=== PATIENT | male | born 1945 | race Hispanic/Latino ===

== ENCOUNTER → 2018-08-28 | Outpatient (CLI) | payer OTHER, MEDICARE ==
[~2018-08-28] MED LIST: ALBU8.5H8 IH; BRIM10DR14 OU; CITA-107 PO; LATA2.5D2 OU; LISI-613 PO; LOVA40TA2 PO; MELO-106 PO; NITR0.4T SL; ROPI1TAB11 PO; TAMS0.4C32 PO
== END | disposition home or self-care (01) ==
LOC: RAH 09:46
PROVIDERS: ATTEND Internal Medicine Cardiovascular Disease
DX: I34.0 Nonrheumatic mitral (valve) insufficiency (principal)
CPT/HCPCS: 93306

== ENCOUNTER → 2018-09-13 | Outpatient (CLI) | payer OTHER, MEDICARE ==
[~2018-09-13] VITALS: Ht 160 cm; Wt 83.5 kg
[~2018-09-13] MED LIST changes: +REGADENOSON 0.4 MG/5 ML PF SYG IVP ONE; +REGADENOSON 0.4 MG/5 ML PF SYG IVP SCH
== END | disposition home or self-care (01) ==
LOC: SHCH 08:34
PROVIDERS: ATTEND Internal Medicine Cardiovascular Disease
DX: I42.9 Cardiomyopathy, unspecified (principal)
CPT/HCPCS: 78452; 93017; 96374; A9500 ×2; J2785

== ENCOUNTER → 2019-12-17 | Outpatient (CLI) | payer OTHER, MEDICARE ==
[~2019-12-17] MED LIST changes: -REGADENOSON 0.4 MG/5 ML PF SYG IVP ONE; -REGADENOSON 0.4 MG/5 ML PF SYG IVP SCH; -ROPI1TAB11 PO; +ROPI1TAB13 PO
== END | disposition home or self-care (01) ==
LOC: SHCH 13:26
PROVIDERS: ATTEND Internal Medicine Cardiovascular Disease
DX: I34.0 Nonrheumatic mitral (valve) insufficiency (principal); I25.10 Atherosclerotic heart disease of native coronary artery without angina pectoris; E66.9 Obesity, unspecified; E78.5 Hyperlipidemia, unspecified; I51.7 Cardiomegaly
CPT/HCPCS: 93306; 93356

== ENCOUNTER → 2020-01-30 | Outpatient (CLI) | payer OTHER, MEDICARE ==
[~2020-01-30] MED LIST changes: +IOHEXOL-350 75 ML VIAL IV ONE; +LATA2.5D14 OU; -LATA2.5D2 OU
== END | disposition home or self-care (01) ==
LOC: RAH 08:39
PROVIDERS: ATTEND Internal Medicine Cardiovascular Disease
DX: I51.7 Cardiomegaly (principal); J44.9 Chronic obstructive pulmonary disease, unspecified; I45.10 Unspecified right bundle-branch block; J98.11 Atelectasis; M47.814 Spondylosis without myelopathy or radiculopathy, thoracic region
CPT/HCPCS: 71275; Q9967

== ENCOUNTER 2021-02-11 22:01 | Inpatient (IN) | payer OTHER, MEDICARE ==
[~2021-02-11] VITALS: Ht 157.5 cm; Wt 76.5 kg
[~2021-02-11 22:01] MED LIST changes: -IOHEXOL-350 75 ML VIAL IV ONE; -LISI-613 PO; +LISI20TA24 PO
[2021-02-11] MEDS ORDERED: ALPRAZOLAM 0.25 MG TABLET ONE (22:43)
[2021-02-11] MEDS ORDERED: DILTIAZEM 50MG VIAL IV ONE (22:46)
[2021-02-11] MEDS ORDERED: ALPRAZOLAM 0.5 MG TABLET PO ONE (23:00)
[2021-02-11] MEDS ORDERED: DILTIAZEM 25MG INJ IVP SCH (23:00)
[2021-02-11 23:08] LABS: BASOPHILS % (AUTO) 0.1 % (0.0-5.0); LYMPHOCYTES % (AUTO) 6.3 % (21.0-51.0); MEAN CORPUSCULAR HEMOGLOBIN 23.6 pg (27.0-33.0); MEAN CORPUSCULAR HGB CONC 30.7 g/dL (32.0-36.0); MEAN CORPUSCULAR VOLUME 77.1 fL (79-99); MONOCYTES % (AUTO) 3.2 % (3.0-13.0); NEUTROPHILS % (AUTO) 89.9 % (40.0-77.0); PLATELET COUNT (AUTO) 191 K/uL (130-400); RED BLOOD CELL COUNT(AUTO) 5.71 MIL/uL (4.50-6.20); RED CELL DISTRIBUTION WIDTH 17.3 % (11.0-15.5); WHITE BLOOD COUNT (AUTO) 13.3 K/uL (4.8-10.8)
[2021-02-11 23:16] LABS: CREATININE 1.6 mg/dL (0.5-1.5); POTASSIUM 3.3 mmol/L (3.5-5.1)
[2021-02-11 23:20] LABS: ALBUMIN 3.6 g/dL (3.5-5.0); TOTAL PROTEIN, SERUM 8.1 g/dL (6.0-8.3)
[2021-02-11] MEDS ORDERED: ASPIRIN 325MG TAB PO ONE (23:30)
[2021-02-11] MEDS ORDERED: ONDANSETRON 4MG INJ IVP ONE (23:30)
[2021-02-11] MEDS ORDERED: MORPHINE 4 MG SYG IVP SCH (23:30)
[2021-02-11] MEDS ORDERED: PHARMACY COMMUNICATION MISC SCH (23:45)
[2021-02-11 23:50] LABS: B-TYPE NATRIURETIC PEPTIDE 799 pg/mL (0-100)
[2021-02-12] MEDS ORDERED: DILTIAZEM 125 MG/25 ML INJ 125 MG in 0.9%NACL 100ML 100 ML IV SCH (01:30)
[2021-02-12] MEDS ORDERED: DILTIAZEM 50MG VIAL IV ONE ×2 (02:05→22:01)
[2021-02-12] MEDS ORDERED: 0.9%NACL 100ML 100 ML ONE ×2 (02:07→22:01)
[2021-02-12 04:49] LABS: APPEARANCE,URINE Clear (CLEAR); BILIRUBIN,URINE Negative (NEGATIVE); COLOR,URINE Yellow (YELLOW); GLUCOSE, URINE (UA) Negative (NEGATIVE); KETONES,URINE Negative (NEGATIVE); LEUKOCYTE ESTERASE ,URINE Negative (NEGATIVE); NITRATE,URINE Negative (NEGATIVE); OCCULT BLOOD,URINE Small (NEGATIVE); PH,URINE 5.5 (5.0-8.0); PROTEIN,URINE POS 1+ mg/dL (NEGATIVE)
[2021-02-12 04:55] LABS: BACTERIA,URINE None Seen /HPF (None Seen); RBC,URINE 0-1 /HPF (0-1); WBC,URINE None Seen /HPF (0-1)
[2021-02-12 04:56] LABS: SQUAMOUS EPITHELIAL CELL,UR Rare /HPF (0-2)
[2021-02-12] MEDS ORDERED: IPRATROPIUM/ALBUTEROL SULFATE 3 ML SOLUTION IH PRN (05:00)
[2021-02-12] MEDS ORDERED: ONDANSETRON 4MG INJ IV PRN (05:00)
[2021-02-12] MEDS ORDERED: 0.9% NACL 250ML IVPB SCH (05:00)
[2021-02-12] MEDS ORDERED: FUROSEMIDE 40MG VIAL IV ONE (05:00)
[2021-02-12] MEDS ORDERED: AZITHROMYCIN 500MG VIAL IVPB SCH (05:00)
[2021-02-12] MEDS ORDERED: NITROGLYCERIN 0.4 MG SL TAB SL PRN ×2 (05:00→09:30)
[2021-02-12] MEDS ORDERED: ACETAMINOPHEN 325 MG TAB PO PRN ×2 (05:00)
[2021-02-12 05:12] LABS: BASOPHILS % (AUTO) 0.1 % (0.0-5.0); HEMATOCRIT 43.4 % (42-54); LYMPHOCYTES % (AUTO) 7.7 % (21.0-51.0); MEAN CORPUSCULAR HEMOGLOBIN 23.4 pg (27.0-33.0); MEAN CORPUSCULAR HGB CONC 30.6 g/dL (32.0-36.0); MEAN CORPUSCULAR VOLUME 76.3 fL (79-99); MONOCYTES % (AUTO) 5.2 % (3.0-13.0); NEUTROPHILS % (AUTO) 86.4 % (40.0-77.0); PLATELET COUNT (AUTO) 194 K/uL (130-400); RED BLOOD CELL COUNT(AUTO) 5.69 MIL/uL (4.50-6.20); WHITE BLOOD COUNT (AUTO) 13.6 K/uL (4.8-10.8)
[2021-02-12 05:25] LABS: INR 1.26 (0.85-1.15); PROTHROMBIN TIME 13.4 SEC (9.6-11.6)
[2021-02-12 05:26] LABS: PARTIAL THROMBOPLASTIN TIME 27.3 SEC (26.3-35.5)
[2021-02-12] MEDS: AZITHROMYCIN 500MG+NS 250ML 250 ML IV SCH (05:45)
[2021-02-12] MEDS: CEFTRIAXONE 1G VIAL IV SCH (05:45)
[2021-02-12 06:07] LABS: ALANINE AMINOTRANSFERASE 37 U/L (12-78); ALBUMIN 3.6 g/dL (3.5-5.0); ASPARTATE AMINOTRANSFERASE 121 U/L (10-37); BILIRUBIN,TOTAL 0.9 mg/dL (0.2-1.0); CARBON DIOXIDE 28 mmol/L (21-32); CHLORIDE 104 mmol/L (101-111); CHOLESTEROL 114 mg/dL (<200); CREATININE 1.3 mg/dL (0.5-1.5); GLOMERULAR FILTR. RATE CALC 57 mL/min (>60); GLUCOSE,RANDOM 164 mg/dL (70-105); HDL CHOLESTEROL 48 mg/dL (29-71); LDL DIRECT 55 mg/dL (0-99); MYOGLOBIN 1650 ng/mL (10-92); POTASSIUM 3.4 mmol/L (3.5-5.1); SODIUM SERUM 142 mmol/L (136-145); TOTAL PROTEIN, SERUM 7.8 g/dL (6.0-8.3); TRIGLYCERIDES 68 mg/dL (30-200); UREA NITROGEN, BLOOD 36 mg/dL (7-18)
[2021-02-12 06:14] LABS: CRP QUANTITATIVE < 2.00 mg/L (0.00-9.0)
[2021-02-12 06:16] LABS: CREATINE KINASE, TOTAL 2906 U/L (21-232)
[2021-02-12] MEDS ORDERED: PANT40TA PO (07:59)
[2021-02-12] MEDS ORDERED: LINA145C PO (07:59)
[2021-02-12] MEDS ORDERED: LOVA40TA2 PO (07:59)
[2021-02-12] MEDS ORDERED: APIX5TAB PO (07:59)
[2021-02-12] MEDS ORDERED: CETI10TA57 PO (07:59)
[2021-02-12] MEDS ORDERED: DIGO125T71 PO (08:10)
[2021-02-12] MEDS ORDERED: POTA20LI52 PO (08:10)
[2021-02-12] MEDS ORDERED: METO-391 PO (08:10)
[2021-02-12] MEDS ORDERED: FURO40TA7 PO (08:10)
[2021-02-12] MEDS ORDERED: FLUT1BLS3 IH (08:14)
[2021-02-12] MEDS ORDERED: ALBU8.5H8 IH (08:14)
[2021-02-12] MEDS ORDERED: MIRT-93 PO (08:14)
[2021-02-12] MEDS: METOPROLOL SUCCINATE 50 MG TAB.SR.24H PO SCH (08:58)
[2021-02-12] MEDS: HEPARIN 5,000 UNIT VIAL SQ SCH ×3 (08:58→21:00)
[2021-02-12] MEDS ORDERED: FAMOTIDINE 20MG TAB PO SCH (09:00)
[2021-02-12] MEDS ORDERED: POTASSIUM CHLORIDE 10% ELIXIR 20 MEQ/15 ML UDCUP PO PRN (09:30)
[2021-02-12] MEDS ORDERED: POTASSIUM CHLORIDE 20MEQ/100ML 100 ML IV PRN (09:30)
[2021-02-12] MEDS ORDERED: LIDOCAINE HCL-MPF 1% 2ML VIAL IV PRN (09:30)
[2021-02-12] MEDS: APIXABAN 5 MG TABLET PO SCH ×2 (10:29→21:00)
[2021-02-12] MEDS ORDERED: ACET1TAB25 PO (10:35)
[2021-02-12] MEDS ORDERED: ALBUTEROL INHALER IH PRN (13:00)
[2021-02-12] MEDS: FUROSEMIDE 40 MG TABLET PO SCH (17:56)
[2021-02-12] MEDS: BRIMONIDINE TARTRATE 0.2% 5 ML BOTTLE OU SCH (21:00)
[2021-02-12] MEDS ORDERED: NON-FORMULARY MEDICATION 1 EACH (Lovastatin 40 MG) PO SCH (21:00)
[2021-02-12] MEDS: Lovastatin 40 MG PO SCH (21:00)
[2021-02-12] MEDS: LATANOPROST 2.5 ML DROPS OU SCH (21:00)
[2021-02-13] VITALS (8 sets, daily range): BP systolic 100–144; BP diastolic 51–81
[2021-02-13] MEDS: CEFTRIAXONE 1G VIAL IV SCH (05:19)
[2021-02-13] MEDS: AZITHROMYCIN 500MG+NS 250ML 250 ML IV SCH (05:20)
[2021-02-13] MEDS ORDERED: TAMSULOSIN HCL 0.4 MG CAP.ER.24H PO SCH (09:00)
[2021-02-13] MEDS ORDERED: POTASSIUM CHLORIDE 10% ELIXIR 20 MEQ/15 ML UDCUP PO SCH (09:00)
[2021-02-13] MEDS: PANTOPRAZOLE 40 MG TAB DR PO SCH (09:09)
[2021-02-13] MEDS: METOPROLOL SUCCINATE 50 MG TAB.SR.24H PO SCH (09:09)
[2021-02-13] MEDS: CITALOPRAM 20 MG TABLET PO SCH (09:09)
[2021-02-13] MEDS: APIXABAN 5 MG TABLET PO SCH ×2 (09:10→20:46)
[2021-02-13] MEDS: BRIMONIDINE TARTRATE 0.2% 5 ML BOTTLE OU SCH ×2 (09:12→20:47)
[2021-02-13] MEDS: FUROSEMIDE 40 MG TABLET PO SCH ×2 (09:17→16:09)
[2021-02-13] MEDS: HEPARIN 5,000 UNIT VIAL SQ SCH (09:20)
[2021-02-13 09:45] LABS: HEMATOCRIT 45.1 % (42-54); MEAN CORPUSCULAR HEMOGLOBIN 23.9 pg (27.0-33.0); MEAN CORPUSCULAR HGB CONC 30.2 g/dL (32.0-36.0); MEAN CORPUSCULAR VOLUME 79.4 fL (79-99); RED BLOOD CELL COUNT(AUTO) 5.68 MIL/uL (4.50-6.20); RED CELL DISTRIBUTION WIDTH 17.7 % (11.0-15.5); WHITE BLOOD COUNT (AUTO) 9.1 K/uL (4.8-10.8)
[2021-02-13] MEDS ORDERED: DILTIAZEM 120MG SR CAP PO SCH (10:00)
[2021-02-13] MEDS: DIGOXIN 125 MCG TABLET PO SCH ×2 (10:26→16:08)
[2021-02-13 10:29] LABS: CREATININE 1.2 mg/dL (0.5-1.5); POTASSIUM 3.6 mmol/L (3.5-5.1)
[2021-02-13] MEDS: AZITHROMYCIN 250 MG TABLET PO SCH (10:40)
[2021-02-13] MEDS: LATANOPROST 2.5 ML DROPS OU SCH (20:47)
[2021-02-13] MEDS: Lovastatin 40 MG PO SCH (20:54)
[2021-02-14 04:11] VITALS: BP 105/48
[2021-02-14 04:11] LABS: MEAN CORPUSCULAR HEMOGLOBIN 23.5 pg (27.0-33.0); MEAN CORPUSCULAR HGB CONC 30.5 g/dL (32.0-36.0); MEAN CORPUSCULAR VOLUME 77.1 fL (79-99); RED BLOOD CELL COUNT(AUTO) 5.32 MIL/uL (4.50-6.20); RED CELL DISTRIBUTION WIDTH 16.8 % (11.0-15.5); WHITE BLOOD COUNT (AUTO) 7.8 K/uL (4.8-10.8)
[2021-02-14 04:27] LABS: POTASSIUM 3.4 mmol/L (3.5-5.1)
[2021-02-14 08:19] VITALS: BP 107/56
[2021-02-14] MEDS: APIXABAN 5 MG TABLET PO SCH ×2 (08:27→21:22)
[2021-02-14] MEDS: PANTOPRAZOLE 40 MG TAB DR PO SCH (08:27)
[2021-02-14] MEDS: METOPROLOL SUCCINATE 50 MG TAB.SR.24H PO SCH (08:28)
[2021-02-14] MEDS: CITALOPRAM 20 MG TABLET PO SCH (08:28)
[2021-02-14] MEDS: FUROSEMIDE 40 MG TABLET PO SCH ×2 (08:28→16:06)
[2021-02-14] MEDS: LOSARTAN 25 MG TABLET PO SCH (08:28)
[2021-02-14] MEDS: AZITHROMYCIN 250 MG TABLET PO SCH (08:29)
[2021-02-14] MEDS: BRIMONIDINE TARTRATE 0.2% 5 ML BOTTLE OU SCH ×2 (08:29→21:23)
[2021-02-14] MEDS: DIGOXIN 125 MCG TABLET PO SCH ×2 (08:44→16:04)
[2021-02-14 11:52] VITALS: BP 101/58
[2021-02-14 16:01] VITALS: BP 114/68
[2021-02-14 20:00] VITALS: BP 104/55
[2021-02-14] MEDS: Lovastatin 40 MG PO SCH (21:00)
[2021-02-14] MEDS: LATANOPROST 2.5 ML DROPS OU SCH (21:22)
[2021-02-15 00:05] VITALS: BP 112/61
[2021-02-15 04:07] VITALS: BP 117/68
[2021-02-15 04:28] LABS: HEMATOCRIT 42.8 % (42-54); MEAN CORPUSCULAR HEMOGLOBIN 23.5 pg (27.0-33.0); MEAN CORPUSCULAR HGB CONC 29.9 g/dL (32.0-36.0); MEAN CORPUSCULAR VOLUME 78.7 fL (79-99); RED BLOOD CELL COUNT(AUTO) 5.44 MIL/uL (4.50-6.20); RED CELL DISTRIBUTION WIDTH 16.6 % (11.0-15.5)
[2021-02-15 04:37] LABS: CREATININE 1.1 mg/dL (0.5-1.5); MAGNESIUM 2.5 mg/dL (1.80-2.40); POTASSIUM 3.4 mmol/L (3.5-5.1)
[2021-02-15 08:46] VITALS: BP 110/57
[2021-02-15] MEDS: METOPROLOL SUCCINATE 50 MG TAB.SR.24H PO SCH (08:56)
[2021-02-15] MEDS: KCL 20 MEQ ERTAB PO PRN ×2 (08:58→20:23)
[2021-02-15] MEDS: BRIMONIDINE TARTRATE 0.2% 5 ML BOTTLE OU SCH ×2 (09:00→20:23)
[2021-02-15] MEDS ORDERED: REGADENOSON 0.4 MG/5 ML PF SYG IVP SCH (12:00)
[2021-02-15 12:31] VITALS: BP 121/71
[2021-02-15] MEDS: DIGOXIN 125 MCG TABLET PO SCH ×2 (16:00→17:30)
[2021-02-15 16:30] VITALS: BP 126/83
[2021-02-15] MEDS: FUROSEMIDE 40 MG TABLET PO SCH ×2 (17:00→17:31)
[2021-02-15] MEDS: APIXABAN 5 MG TABLET PO SCH ×2 (17:29→20:23)
[2021-02-15] MEDS: AZITHROMYCIN 250 MG TABLET PO SCH (17:30)
[2021-02-15] MEDS: CITALOPRAM 20 MG TABLET PO SCH (17:30)
[2021-02-15] MEDS: LOSARTAN 25 MG TABLET PO SCH (17:30)
[2021-02-15] MEDS: PANTOPRAZOLE 40 MG TAB DR PO SCH (17:30)
[2021-02-15 20:00] VITALS: BP 104/66
[2021-02-15] MEDS: LATANOPROST 2.5 ML DROPS OU SCH (20:23)
[2021-02-15] MEDS: Lovastatin 40 MG PO SCH (20:26)
[2021-02-16] VITALS: BP 93/52
[2021-02-16 04:00] VITALS: BP 107/52
[2021-02-16] MEDS ORDERED: METOPROLOL TARTRATE 1 MG/ML 5ML VIAL IV ONE (07:41)
[2021-02-16 08:00] VITALS: BP 114/70
[2021-02-16] MEDS: METOPROLOL SUCCINATE 50 MG TAB.SR.24H PO SCH (09:37)
[2021-02-16] MEDS: CITALOPRAM 20 MG TABLET PO SCH (09:38)
[2021-02-16] MEDS: DIGOXIN 125 MCG TABLET PO SCH (09:38)
[2021-02-16] MEDS: APIXABAN 5 MG TABLET PO SCH (09:38)
[2021-02-16] MEDS: LOSARTAN 25 MG TABLET PO SCH (09:38)
[2021-02-16] MEDS: PANTOPRAZOLE 40 MG TAB DR PO SCH (09:38)
[2021-02-16] MEDS: AZITHROMYCIN 250 MG TABLET PO SCH (09:38)
[2021-02-16] MEDS: BRIMONIDINE TARTRATE 0.2% 5 ML BOTTLE OU SCH (09:40)
[2021-02-16] MEDS: FUROSEMIDE 40 MG TABLET PO SCH (09:42)
[2021-02-16] MEDS ORDERED: METOPROLOL TARTRATE 1 MG/ML 5ML VIAL IV SCH (10:00)
[2021-02-16] MEDS ORDERED: LACTULOSE 20 GM/30 ML UDCUP PO SCH (10:00)
[2021-02-16 12:00] VITALS: BP 115/66
[2021-02-16] MEDS ORDERED: LACT10SO9 PO (13:59)
[2021-02-16] MEDS ORDERED: METO-409 PO (14:00)
[2021-02-17] MEDS ORDERED: HYDROCORTISONE 25 MG SUPPOSITORY PR SCH (09:00)
== END 2021-02-16 15:40 | disposition home or self-care (01) | DRG 871 ==
LOC: EDH 22:01 → EDHIP 02-12 04:38 → 4DH 02-12 23:00
PROVIDERS: ADMIT Internal Medicine; ATTEND Internal Medicine
DX: A41.9 Sepsis, unspecified organism (principal); I50.23 Acute on chronic systolic (congestive) heart failure; J15.9 Unspecified bacterial pneumonia; F11.20 Opioid dependence, uncomplicated; F32.1 Major depressive disorder, single episode, moderate; I42.0 Dilated cardiomyopathy; J44.1 Chronic obstructive pulmonary disease with (acute) exacerbation; M62.82 Rhabdomyolysis; I13.0 Hypertensive heart and chronic kidney disease with heart failure and stage 1 through stage 4 chronic kidney disease, or unspecified chronic kidney disease; D68.69 Other thrombophilia; R79.89 Other specified abnormal findings of blood chemistry; N18.30 Chronic kidney disease, stage 3 unspecified; Z20.822 Contact with and (suspected) exposure to COVID-19; E11.22 Type 2 diabetes mellitus with diabetic chronic kidney disease; E11.42 Type 2 diabetes mellitus with diabetic polyneuropathy; E78.2 Mixed hyperlipidemia; F41.9 Anxiety disorder, unspecified; G25.81 Restless legs syndrome; G47.30 Sleep apnea, unspecified; H40.1190 Primary open-angle glaucoma, unspecified eye, stage unspecified; I25.10 Atherosclerotic heart disease of native coronary artery without angina pectoris; I45.10 Unspecified right bundle-branch block; I48.0 Paroxysmal atrial fibrillation; I70.0 Atherosclerosis of aorta; K21.9 Gastro-esophageal reflux disease without esophagitis; K40.90 Unilateral inguinal hernia, without obstruction or gangrene, not specified as recurrent; K43.9 Ventral hernia without obstruction or gangrene; K59.00 Constipation, unspecified; M19.90 Unspecified osteoarthritis, unspecified site; M48.061 Spinal stenosis, lumbar region without neurogenic claudication; N40.0 Benign prostatic hyperplasia without lower urinary tract symptoms; W18.30XA Fall on same level, unspecified, initial encounter; Y93.89 Activity, other specified; Y92.098 Other place in other non-institutional residence as the place of occurrence of the external cause; Y99.8 Other external cause status; Z88.5 Allergy status to narcotic agent; Z88.8 Allergy status to other drugs, medicaments and biological substances; Z87.891 Personal history of nicotine dependence; Z79.01 Long term (current) use of anticoagulants; Z79.899 Other long term (current) drug therapy; Z86.73 Personal history of transient ischemic attack (TIA), and cerebral infarction without residual deficits; Z83.3 Family history of diabetes mellitus; Z82.3 Family history of stroke; Z82.0 Family history of epilepsy and other diseases of the nervous system; Z82.49 Family history of ischemic heart disease and other diseases of the circulatory system; Z82.5 Family history of asthma and other chronic lower respiratory diseases
CPT/HCPCS: 36415; 71045; 73030; 73502; 74230; 78452; 80048; 80053; 80061; 80162; 81001; 82550; 83605; 83735; 83874; 83880; 84145; 84484; 85025; 85027; 85610; 85730; 86140; 87040; 87635; 92610; 92611; 93005; 93017; 93306; 93356; 96374; A9500; G0378; J0456; J0696; J1644; J1940; J2405; J2785; J3490

== ENCOUNTER → 2022-01-31 | Outpatient (CLI) | payer OTHER, MEDICARE ==
[~2022-01-31] MED LIST changes: +APIX5TAB PO; +AZIT500T PO; -CITA-107 PO; +CPAP NASAL; +DIGO125T71 PO; +FLUT16H NS; +FLUT1BLS3 IH; +FURO40TA7 PO; +LINA290C PO; -LISI20TA24 PO; -LOVA40TA2 PO; -MELO-106 PO; +METO-409 PO; +NITR0.3T11 SL; -NITR0.4T SL; +OSEL75 PO; +PANT40TA PO; +POTA-200 PO; +ROSU10TA28 PO; -TAMS0.4C32 PO
[2022-01-31 12:34] LABS: CREATININE 1.1 mg/dL (0.5-1.5); POTASSIUM 4.1 mmol/L (3.5-5.1)
== END | disposition home or self-care (01) ==
LOC: LAB 11:30
PROVIDERS: ATTEND Internal Medicine Cardiovascular Disease
DX: I10 Essential (primary) hypertension (principal)
CPT/HCPCS: 36415; 80048

== ENCOUNTER → 2022-10-10 | Outpatient (CLI) | payer OTHER, MEDICARE ==
[~2022-10-10] MED LIST changes: -ROPI1TAB13 PO; +ROPI1TAB46 PO
== END | disposition home or self-care (01) ==
LOC: SHCH 15:05
PROVIDERS: ATTEND Internal Medicine Cardiovascular Disease
DX: I34.0 Nonrheumatic mitral (valve) insufficiency (principal); I42.0 Dilated cardiomyopathy
CPT/HCPCS: 93306

== ENCOUNTER → 2023-03-20 | Outpatient (CLI) | payer OTHER, MEDICARE | END | disposition home or self-care (01) | LOC: LAB 11:49 | PROVIDERS: ATTEND Internal Medicine Cardiovascular Disease | DX: I10 Essential (primary) hypertension (principal) | CPT/HCPCS: 36415; 83880 ==

== ENCOUNTER → 2023-03-22 | Outpatient (CLI) | payer OTHER, MEDICARE | END | disposition home or self-care (01) | LOC: SHCH 14:29 | PROVIDERS: ATTEND Internal Medicine Cardiovascular Disease | DX: I34.0 Nonrheumatic mitral (valve) insufficiency (principal); E78.5 Hyperlipidemia, unspecified; I11.9 Hypertensive heart disease without heart failure | CPT/HCPCS: 93306 ==

== ENCOUNTER → 2023-04-12 | Outpatient (CLI) | payer OTHER, MEDICARE ==
[2023-04-12 16:44] LABS: CREATININE 1.6 mg/dL (0.5-1.5); POTASSIUM 3.6 mmol/L (3.5-5.1)
== END | disposition home or self-care (01) ==
LOC: LAB 15:06
PROVIDERS: ATTEND Internal Medicine Cardiovascular Disease
DX: I45.10 Unspecified right bundle-branch block (principal)
CPT/HCPCS: 36415; 80048; 85378

== ENCOUNTER 2023-10-31 20:37 | Observation (INO) | payer OTHER, MEDICARE ==
[~2023-10-31] VITALS: Ht 157.5 cm; Wt 88.2 kg
[~2023-10-31 20:37] MED LIST changes: -ROSU10TA28 PO; +ROSU10TA72 PO
[2023-10-31 21:26] LABS: BASOPHILS # (AUTO) 0.05 K/uL (0.00-0.20); BASOPHILS % (AUTO) 0.6 % (0.0-5.0); EOSINOPHILS # (AUTO) 0.13 K/uL (0.00-0.70); EOSINOPHILS % (AUTO) 1.6 % (0.0-8.0); IMMATURE GRANULOCYTE ABSOLUTE 0.02 K/uL (0-1); LYMPHOCYTES # (AUTO) 1.4 K/uL (1.0-4.8); LYMPHOCYTES % (AUTO) 17.4 % (21.0-51.0); MEAN CORPUSCULAR HEMOGLOBIN 23.3 pg (27.0-33.0); MEAN CORPUSCULAR VOLUME 77.5 fL (79-99); MONOCYTES # (AUTO) 0.6 K/uL (0.1-1.0); MONOCYTES % (AUTO) 7.1 % (3.0-13.0); NEUTROPHILS # (AUTO) 5.9 K/uL (1.8-7.7); NEUTROPHILS % (AUTO) 73.1 % (40.0-77.0); PLATELET COUNT (AUTO) 181 K/uL (130-400); RED BLOOD CELL COUNT(AUTO) 5.16 MIL/uL (4.50-6.20); RED CELL DISTRIBUTION WIDTH 17.2 % (11.0-15.5); WHITE BLOOD COUNT (AUTO) 8.1 K/uL (4.8-10.8)
[2023-10-31 21:33] LABS: CREATININE 1.1 mg/dL (0.5-1.3); POTASSIUM 4.1 mmol/L (3.5-5.1)
[2023-11-01] VITALS (8 sets, daily range): BP systolic 115–145; BP diastolic 77–81; PULSE 93–134; RESP 19–20; O2SAT 96–99
[2023-11-01] MEDS ORDERED: SACU1TAB PO (00:09)
[2023-11-01] MEDS ORDERED: MONT-39 PO (00:15)
[2023-11-01] MEDS ORDERED: FURO40TA7 PO (00:15)
[2023-11-01] MEDS ORDERED: POTA20LI52 PO (00:18)
[2023-11-01] MEDS ORDERED: ALBUTEROL 0.083% 2.5 MG/3 ML INH IH PRN (00:30)
[2023-11-01] MEDS ORDERED: fluTICasone proPIONate 50MCG/SPRAY 16 GM BOTTLE NS PRN (00:30)
[2023-11-01] MEDS ORDERED: NON-FORMULARY MEDICATION 1 EACH (Nitroglycerin 0.3 MG) SL PRN (00:30)
[2023-11-01] MEDS ORDERED: guaiFENesin-coDEINE-DM 200/20 MG 10 ML PO PRN (00:30)
[2023-11-01] MEDS ORDERED: NITROGLYCERIN 0.4 MG SL TAB SL PRN (00:30)
[2023-11-01] MEDS ORDERED: ALBUTEROL SULFATE IH PRN (00:30)
[2023-11-01] MEDS ORDERED: acetaMINOPHEN 325 MG TAB PO PRN ×2 (00:30)
[2023-11-01] MEDS ORDERED: MAG/ALUM/SIMETH 30 ML UDCUP PO PRN (00:30)
[2023-11-01] MEDS: ONDANSETRON 4MG INJ IVP PRN (00:45)
[2023-11-01] MEDS: FUROSEMIDE 40MG VIAL IV SCH (00:45)
[2023-11-01] MEDS: cefTRIAXone 1G VIAL IVPB SCH (00:57)
[2023-11-01] MEDS: LACTULOSE 20 GM/30 ML UDCUP PO ONE (01:03)
[2023-11-01] MEDS: BisaCODYL 10 MG SUPP.RECT RC ONE (01:03)
[2023-11-01 01:30] LABS: APPEARANCE,URINE CLEAR (CLEAR); BILIRUBIN,URINE NEGATIVE (NEGATIVE); COLOR,URINE YELLOW (YELLOW); GLUCOSE, URINE (UA) NEGATIVE (NEGATIVE); KETONES,URINE NEGATIVE (NEGATIVE); LEUKOCYTE ESTERASE ,URINE NEGATIVE Leu/uL (NEGATIVE); NITRATE,URINE NEGATIVE (NEGATIVE); OCCULT BLOOD,URINE NEGATIVE (NEGATIVE); PH,URINE 5.5 (5.0-8.0); PROTEIN,URINE 30 mg/dL (NEGATIVE); UROBILINOGEN,URINE 0.2 mg/dL (0.2-1.0)
[2023-11-01 01:34] LABS: MUCUS,URINE RARE LPF (None Seen); RBC,URINE 0-1 /HPF (0-1); SQUAMOUS EPITHELIAL CELL,UR RARE /HPF (0-2); WBC,URINE 0-1 /HPF (0-1)
[2023-11-01] MEDS: LACTULOSE 20 GM/30 ML UDCUP PO PRN (02:46)
[2023-11-01 06:48] LABS: HEMATOCRIT 41.8 % (42-54); MEAN CORPUSCULAR HGB CONC 29.9 g/dL (32.0-36.0); RED BLOOD CELL COUNT(AUTO) 5.43 MIL/uL (4.50-6.20); RED CELL DISTRIBUTION WIDTH 17.8 % (11.0-15.5); WHITE BLOOD COUNT (AUTO) 7.7 K/uL (4.8-10.8)
[2023-11-01 06:59] LABS: CREATININE 1.3 mg/dL (0.5-1.3); POTASSIUM 4.1 mmol/L (3.5-5.1)
[2023-11-01] MEDS ORDERED: NON-FORMULARY MEDICATION 1 EACH (Metoprolol Succinate 100 MG) PO SCH (09:00)
[2023-11-01] MEDS: BRIMONIDINE TARTRATE 0.2% 5 ML BOTTLE OP SCH (09:00)
[2023-11-01] MEDS ORDERED: BRIMONIDINE TARTRATE 0.2% OU SCH (09:00)
[2023-11-01] MEDS ORDERED: NON-FORMULARY MEDICATION 1 EACH (Rosuvastatin Calcium 10 MG) PO SCH (09:00)
[2023-11-01] MEDS ORDERED: KCL 20 MEQ ERTAB PO SCH (09:00)
[2023-11-01] MEDS ORDERED: LACT10SO85 PO (09:44)
[2023-11-01] MEDS: metOPROLol sucCINATE 50 MG TAB.SR.24H PO SCH (09:50)
[2023-11-01] MEDS: APIXaban 5 MG TABLET PO SCH (09:51)
[2023-11-01] MEDS: monteLUKAST sodIUM 10 MG TAB PO SCH (09:51)
[2023-11-01] MEDS: KCL 20 MEQ ERTAB PO SCH (09:51)
[2023-11-01] MEDS: SACUBITRIL/VALSARTAN 1 EACH TABLET PO SCH (09:51)
[2023-11-01] MEDS: ATORVASTATIN 40 MG TABLET PO SCH (09:51)
[2023-11-01] MEDS: PANTOPRAZOLE 40 MG TAB DR PO SCH (09:51)
[2023-11-01] MEDS ORDERED: METO-409 PO (13:33)
[2023-11-01] MEDS ORDERED: CPAP NASAL SCH (21:00)
[2023-11-01] MEDS ORDERED: ropiNIRole HCL 1 MG TABLET PO SCH (21:00)
[2023-11-02] MEDS ORDERED: FUROSEMIDE 40 MG TABLET PO SCH (09:00)
== END 2023-11-01 15:15 | disposition home or self-care (01) ==
LOC: EDH 20:37 → INTOOBSV 23:24 → EDHIP 23:24 → 4BH 11-01 02:00
PROVIDERS: ADMIT Internal Medicine; ATTEND Internal Medicine
DX: K59.00 Constipation, unspecified (principal); J44.9 Chronic obstructive pulmonary disease, unspecified; I13.0 Hypertensive heart and chronic kidney disease with heart failure and stage 1 through stage 4 chronic kidney disease, or unspecified chronic kidney disease; E11.22 Type 2 diabetes mellitus with diabetic chronic kidney disease; N18.30 Chronic kidney disease, stage 3 unspecified; I50.43 Acute on chronic combined systolic (congestive) and diastolic (congestive) heart failure; I48.20 Chronic atrial fibrillation, unspecified; E78.5 Hyperlipidemia, unspecified; N40.0 Benign prostatic hyperplasia without lower urinary tract symptoms; I70.0 Atherosclerosis of aorta; E11.42 Type 2 diabetes mellitus with diabetic polyneuropathy; E11.65 Type 2 diabetes mellitus with hyperglycemia; E11.36 Type 2 diabetes mellitus with diabetic cataract; M79.89 Other specified soft tissue disorders; J96.11 Chronic respiratory failure with hypoxia; M48.07 Spinal stenosis, lumbosacral region; M48.02 Spinal stenosis, cervical region; M48.04 Spinal stenosis, thoracic region; I25.10 Atherosclerotic heart disease of native coronary artery without angina pectoris; G47.30 Sleep apnea, unspecified; D68.69 Other thrombophilia; G25.81 Restless legs syndrome; F32.1 Major depressive disorder, single episode, moderate; K21.9 Gastro-esophageal reflux disease without esophagitis; H40.1190 Primary open-angle glaucoma, unspecified eye, stage unspecified; M19.90 Unspecified osteoarthritis, unspecified site; I95.9 Hypotension, unspecified; Z88.5 Allergy status to narcotic agent; Z88.8 Allergy status to other drugs, medicaments and biological substances; Z79.899 Other long term (current) drug therapy
CPT/HCPCS: 80048 ×2; 83880; 83690; 85025; 83605; 36415; 71045; 74176; 99291; 93005; 96365; 96366; 96375; 85027; 87040; 87086; 82948 ×2; 81001; G0378 ×15; J0696 ×2; J2405; J1940 ×2

== ENCOUNTER → 2023-11-07 | Outpatient (CLI) | payer OTHER, MEDICARE ==
[~2023-11-07] MED LIST changes: -AZIT500T PO; -DIGO125T71 PO; +LACT10SO85 PO; +MONT-39 PO; -OSEL75 PO; -POTA-200 PO; +POTA20LI52 PO; +SACU1TAB PO
== END | disposition home or self-care (01) ==
LOC: RAH 10:41
PROVIDERS: ATTEND Internal Medicine
DX: K59.00 Constipation, unspecified (principal); M47.815 Spondylosis without myelopathy or radiculopathy, thoracolumbar region
CPT/HCPCS: 74018

== ENCOUNTER 2023-11-13 15:17 | Inpatient (IN) | payer OTHER, MEDICARE ==
[~2023-11-13] VITALS: Ht 157.5 cm; Wt 82.0 kg
[2023-11-13] MEDS: [UNRECOGNIZED DRUG - OTHER] NASAL SCH (05:20)
[2023-11-13 15:47] LABS: BASOPHILS # (AUTO) 0.06 K/uL (0.00-0.20); BASOPHILS % (AUTO) 0.8 % (0.0-5.0); EOSINOPHILS # (AUTO) 0.17 K/uL (0.00-0.70); EOSINOPHILS % (AUTO) 2.2 % (0.0-8.0); IMMATURE GRANULOCYTE ABSOLUTE 0.02 K/uL (0-1); LYMPHOCYTES # (AUTO) 1.4 K/uL (1.0-4.8); LYMPHOCYTES % (AUTO) 17.6 % (21.0-51.0); MEAN CORPUSCULAR HEMOGLOBIN 22.7 pg (27.0-33.0); MEAN CORPUSCULAR VOLUME 75.7 fL (79-99); MONOCYTES # (AUTO) 0.6 K/uL (0.1-1.0); MONOCYTES % (AUTO) 7.7 % (3.0-13.0); NEUTROPHILS # (AUTO) 5.6 K/uL (1.8-7.7); NEUTROPHILS % (AUTO) 71.4 % (40.0-77.0); PLATELET COUNT (AUTO) 243 K/uL (130-400); RED BLOOD CELL COUNT(AUTO) 5.81 MIL/uL (4.50-6.20); RED CELL DISTRIBUTION WIDTH 18.6 % (11.0-15.5); WHITE BLOOD COUNT (AUTO) 7.8 K/uL (4.8-10.8)
[2023-11-13 16:06] LABS: CREATININE 1.4 mg/dL (0.5-1.3); POTASSIUM 4.2 mmol/L (3.5-5.1)
[2023-11-13 16:09] LABS: INR 1.51 (0.85-1.15); PROTHROMBIN TIME 15.8 SEC (9.6-11.6)
[2023-11-13 16:11] LABS: B-TYPE NATRIURETIC PEPTIDE 1880 pg/mL (0-100)
[2023-11-13 16:24] LABS: APPEARANCE,URINE CLEAR (CLEAR); BILIRUBIN,URINE NEGATIVE (NEGATIVE); COLOR,URINE LIGHT-YELLOW (YELLOW); GLUCOSE, URINE (UA) NEGATIVE (NEGATIVE); KETONES,URINE NEGATIVE (NEGATIVE); LEUKOCYTE ESTERASE ,URINE NEGATIVE Leu/uL (NEGATIVE); NITRATE,URINE NEGATIVE (NEGATIVE); OCCULT BLOOD,URINE NEGATIVE (NEGATIVE); PROTEIN,URINE 10 mg/dL (NEGATIVE); UROBILINOGEN,URINE 0.2 mg/dL (0.2-1.0)
[2023-11-13 16:26] LABS: ADD UA MICROSCOPIC YES
[2023-11-13 16:29] LABS: MUCUS,URINE RARE LPF (None Seen); RBC,URINE 0-1 /HPF (0-1)
[2023-11-13] MEDS: furoSEMIDE 40MG VIAL IV ONE (16:49)
[2023-11-13] MEDS ORDERED: PANTOPRAZOLE 40 MG TAB DR PO PRN (19:00)
[2023-11-13] MEDS ORDERED: LACTULOSE 20 GM/30 ML UDCUP PO PRN ×2 (19:00→19:30)
[2023-11-13] MEDS ORDERED: ALBUTEROL 0.083% 2.5 MG/3 ML INH IH PRN (19:00)
[2023-11-13] MEDS ORDERED: DEXTROSE 50%-WATER 50 ML DISP.SYRIN IV PRN (19:30)
[2023-11-13] MEDS ORDERED: acetaMINOPHEN 325 MG TAB PO PRN ×2 (19:30)
[2023-11-13] MEDS ORDERED: ONDANSETRON 4MG INJ IV PRN (19:30)
[2023-11-13] MEDS ORDERED: NITROGLYCERIN 0.4 MG SL TAB SL PRN (19:30)
[2023-11-13] MEDS ORDERED: POTASSIUM CHLORIDE 10% ELIXIR 20 MEQ/15 ML UDCUP PO PRN (19:30)
[2023-11-13] MEDS ORDERED: GLUCAGON 1MG KIT 1 MG ML IM PRN (19:30)
[2023-11-13] MEDS ORDERED: DIGOxin 250 MCG/ML 2ML AMP IV SCH (19:30)
[2023-11-13] MEDS ORDERED: MAG/ALUM/SIMETH 30 ML UDCUP PO PRN (19:30)
[2023-11-13] MEDS ORDERED: POTASSIUM CHLORIDE 20MEQ/100ML 100 ML IV PRN ×2 (19:30)
[2023-11-13] MEDS: metoLAZONE 2.5 MG TABLET PO ONE (20:12)
[2023-11-13] MEDS: furoSEMIDE 40MG VIAL IV SCH (20:12)
[2023-11-13] MEDS: DIGOxin 250 MCG/ML 2ML AMP IV ONE (20:13)
[2023-11-13] MEDS: LATANOPROST 2.5 ML DROPS OU SCH (20:49)
[2023-11-13] MEDS: BRIMONIDINE TARTRATE 0.2% OU SCH (20:49)
[2023-11-13] MEDS: POTASSIUM CHLORIDE 10MEQ SR TAB PO SCH (20:50)
[2023-11-13] MEDS ORDERED: METO-409 PO (20:50)
[2023-11-13] MEDS: ropiNIRole HCL 1 MG TABLET PO SCH (20:51)
[2023-11-13] MEDS: metOPROLol sucCINATE 50 MG TAB.SR.24H PO SCH (20:51)
[2023-11-13] MEDS: APIXaban 5 MG TABLET PO SCH (20:58)
[2023-11-13] MEDS: INSULIN humuLIN R 100 UNIT/ML 3ML SQ SCH (21:00)
[2023-11-13] MEDS ORDERED: CLOT15CR23 TP (21:05)
[2023-11-13] MEDS ORDERED: MUPI15CR12 TP (21:05)
[2023-11-13] MEDS ORDERED: LACT10SO95 PO (21:05)
[2023-11-13] MEDS ORDERED: CEPH500C2 PO (21:05)
[2023-11-13] MEDS ORDERED: LEVO25CA4 PO (21:05)
[2023-11-13 22:33] VITALS: BP 129/80; PULSE 100; RESP 18
[2023-11-13 22:50] VITALS: O2SAT 98
[2023-11-14] VITALS (9 sets, daily range): BP systolic 114–140; BP diastolic 56–76; PULSE 78–129; RESP 18; TEMP 97.7–98.5; O2SAT 94–98
[2023-11-14 03:50] LABS: HEMATOCRIT 42.1 % (42-54); MEAN CORPUSCULAR HEMOGLOBIN 23.2 pg (27.0-33.0); MEAN CORPUSCULAR HGB CONC 30.9 g/dL (32.0-36.0); MEAN CORPUSCULAR VOLUME 75.2 fL (79-99); RED BLOOD CELL COUNT(AUTO) 5.6 MIL/uL (4.50-6.20); RED CELL DISTRIBUTION WIDTH 18.4 % (11.0-15.5); WHITE BLOOD COUNT (AUTO) 8.4 K/uL (4.8-10.8)
[2023-11-14 04:02] LABS: CREATININE 1.3 mg/dL (0.5-1.3); POTASSIUM 4.1 mmol/L (3.5-5.1)
[2023-11-14] MEDS: KCL 20 MEQ ERTAB PO SCH (10:03)
[2023-11-14] MEDS: DIGOxin 250MCG TABLET PO SCH (10:04)
[2023-11-14] MEDS: monteLUKAST sodIUM 10 MG TAB PO SCH (10:04)
[2023-11-14] MEDS ORDERED: LACT10SO76 PO (14:34)
[2023-11-14] MEDS ORDERED: METO5TAB7 PO (14:37)
[2023-11-14] MEDS ORDERED: SACU1TAB PO (14:40)
[2023-11-14] MEDS ORDERED: LINA290C PO (14:40)
[2023-11-14] MEDS ORDERED: POTA-200 PO (14:42)
[2023-11-14] MEDS ORDERED: FURO40TA5 PO (14:44)
[2023-11-14] MEDS: POTASSIUM CHLORIDE 10MEQ SR TAB PO SCH (14:47)
[2023-11-14] MEDS: ropiNIRole HCL 0.25 MG TABLET PO PRN (14:59)
[2023-11-14] MEDS ORDERED: TAMS-1 PO (15:01)
[2023-11-14] MEDS: tamSULOsin HCL 0.4 MG CAP.ER.24H PO SCH (20:29)
[2023-11-14] MEDS: furoSEMIDE 40MG VIAL IV SCH (20:30)
[2023-11-14] MEDS: LATANOPROST 2.5 ML DROPS PO SCH (20:30)
[2023-11-15] VITALS (10 sets, daily range): BP systolic 81–120; BP diastolic 37–70; PULSE 60–95; RESP 17–18; TEMP 97.7–98.4; O2SAT 97–98
[2023-11-15 03:29] LABS: HEMATOCRIT 43.5 % (42-54); MEAN CORPUSCULAR HEMOGLOBIN 22.9 pg (27.0-33.0); MEAN CORPUSCULAR HGB CONC 30.8 g/dL (32.0-36.0); MEAN CORPUSCULAR VOLUME 74.4 fL (79-99); RED BLOOD CELL COUNT(AUTO) 5.85 MIL/uL (4.50-6.20); RED CELL DISTRIBUTION WIDTH 18.6 % (11.0-15.5); WHITE BLOOD COUNT (AUTO) 8.6 K/uL (4.8-10.8)
[2023-11-15 03:38] LABS: CREATININE 1.7 mg/dL (0.5-1.3); POTASSIUM 3.4 mmol/L (3.5-5.1)
[2023-11-15] MEDS: KCL 20 MEQ ERTAB PO PRN (05:34)
[2023-11-15] MEDS: DIGOxin 125 MCG TABLET PO SCH (09:32)
[2023-11-15] MEDS: atorVAStatin 20 MG TABLET PO SCH (09:33)
[2023-11-15] MEDS: APIXaban 2.5 MG TABLET PO SCH (21:59)
[2023-11-16] VITALS (7 sets, daily range): BP systolic 103–109; BP diastolic 58–70; PULSE 73–101; RESP 16–20; TEMP 97.4–97.9; O2SAT 96
[2023-11-16 03:46] LABS: HEMATOCRIT 43.9 % (42-54); MEAN CORPUSCULAR HEMOGLOBIN 23.2 pg (27.0-33.0); MEAN CORPUSCULAR HGB CONC 30.3 g/dL (32.0-36.0); MEAN CORPUSCULAR VOLUME 76.5 fL (79-99); RED BLOOD CELL COUNT(AUTO) 5.74 MIL/uL (4.50-6.20); RED CELL DISTRIBUTION WIDTH 17.9 % (11.0-15.5); WHITE BLOOD COUNT (AUTO) 8.2 K/uL (4.8-10.8)
[2023-11-16 03:59] LABS: CREATININE 1.2 mg/dL (0.5-1.3); POTASSIUM 3.7 mmol/L (3.5-5.1)
[2023-11-16] MEDS: furoSEMIDE 40 MG TABLET PO SCH (10:35)
[2023-11-16] MEDS: SACUBITRIL/VALSARTAN 1 EACH TABLET PO ONE (10:35)
[2023-11-16] MEDS: metOPROLol sucCINATE 50 MG TAB.SR.24H PO SCH (10:36)
[2023-11-16] MEDS: APIXaban 2.5 MG TABLET PO ONE (10:36)
[2023-11-16] MEDS: ropiNIRole HCL 0.25 MG TABLET PO SCH (20:24)
[2023-11-16] MEDS: APIXaban 5 MG TABLET PO SCH (20:25)
[2023-11-17 00:40] VITALS: BP 97/67; PULSE 78; RESP 18; TEMP 97.3
[2023-11-17 03:40] VITALS: BP 118/51; PULSE 72; RESP 18; TEMP 97.5
[2023-11-17 05:04] LABS: CREATININE 1.3 mg/dL (0.5-1.3); DIGOXIN 1.01 ng/mL (0.50-2.00); POTASSIUM 4.4 mmol/L (3.5-5.1)
[2023-11-17 08:00] VITALS: O2SAT 99
[2023-11-17 08:23] VITALS: BP 103/57; PULSE 99; RESP 16; TEMP 97.9
[2023-11-17] MEDS ORDERED: METO-391 PO (10:24)
[2023-11-17 10:30] VITALS: PULSE 88
[2023-11-17 12:17] VITALS: BP 94/50; PULSE 72; RESP 16; TEMP 97.9
[2023-11-18] MEDS ORDERED: DIGO125T71 PO (13:06)
== END 2023-11-17 12:35 | disposition home or self-care (01) | DRG 291 ==
LOC: EDH 15:17 → OBSVTOIN 19:02 → EDHIP 19:02 → 2DH 22:11
PROVIDERS: ADMIT Internal Medicine; ATTEND Internal Medicine
DX: I13.0 Hypertensive heart and chronic kidney disease with heart failure and stage 1 through stage 4 chronic kidney disease, or unspecified chronic kidney disease (principal); I50.43 Acute on chronic combined systolic (congestive) and diastolic (congestive) heart failure; I48.21 Permanent atrial fibrillation; D68.69 Other thrombophilia; F32.1 Major depressive disorder, single episode, moderate; I24.89 Other forms of acute ischemic heart disease; I48.20 Chronic atrial fibrillation, unspecified; I42.0 Dilated cardiomyopathy; E78.2 Mixed hyperlipidemia; I45.10 Unspecified right bundle-branch block; E03.9 Hypothyroidism, unspecified; D47.2 Monoclonal gammopathy; J44.9 Chronic obstructive pulmonary disease, unspecified; G47.33 Obstructive sleep apnea (adult) (pediatric); N40.0 Benign prostatic hyperplasia without lower urinary tract symptoms; I95.9 Hypotension, unspecified; I25.10 Atherosclerotic heart disease of native coronary artery without angina pectoris; N18.30 Chronic kidney disease, stage 3 unspecified; E11.22 Type 2 diabetes mellitus with diabetic chronic kidney disease; K59.01 Slow transit constipation; R09.02 Hypoxemia; I70.0 Atherosclerosis of aorta; K21.9 Gastro-esophageal reflux disease without esophagitis; E11.42 Type 2 diabetes mellitus with diabetic polyneuropathy; E86.9 Volume depletion, unspecified; G25.81 Restless legs syndrome; I34.0 Nonrheumatic mitral (valve) insufficiency; M19.09 Primary osteoarthritis, other specified site; T50.2X5A Adverse effect of carbonic-anhydrase inhibitors, benzothiadiazides and other diuretics, initial encounter; J84.10 Pulmonary fibrosis, unspecified; M48.8X4 Other specified spondylopathies, thoracic region; M48.8X2 Other specified spondylopathies, cervical region; M48.8X6 Other specified spondylopathies, lumbar region; Z79.01 Long term (current) use of anticoagulants; Z91.148 Patient's other noncompliance with medication regimen for other reason; Z86.73 Personal history of transient ischemic attack (TIA), and cerebral infarction without residual deficits; Z82.3 Family history of stroke; Y92.89 Other specified places as the place of occurrence of the external cause; Z83.3 Family history of diabetes mellitus; Z82.5 Family history of asthma and other chronic lower respiratory diseases; Z82.49 Family history of ischemic heart disease and other diseases of the circulatory system; Z82.0 Family history of epilepsy and other diseases of the nervous system; Z79.899 Other long term (current) drug therapy
CPT/HCPCS: 36415; 71045; 71250; 80048; 80061; 80162; 81001; 82550; 82948; 83735; 83880; 84484; 85025; 85027; 85610; 85730; 93005; 93306; 96374; 96375; G0378; J1160; J1940

== ENCOUNTER → 2024-03-24 | Outpatient (CLI) | payer OTHER, MEDICARE ==
[~2024-03-24] MED LIST changes: +CLOT15CR23 TP; +DIGO125T71 PO; +FURO40TA5 PO; -FURO40TA7 PO; +LACT10SO76 PO; -LACT10SO85 PO; +METO-391 PO; -METO-409 PO; +METO5TAB7 PO; +POTA-200 PO; -POTA20LI52 PO; +TAMS-1 PO
[2024-03-24] MEDS: REGADENOSON 0.4 MG/5 ML PF SYG IVP ONE (15:44)
--- NOTE | 2024-03-25 10:14 | HMCSR ---
APPROVED REPORT Height: 5 ft 3in Weight: 186 lbs TEST INDICATIONS I42.9 CARDIOMYOPATHY UNSPECIFIED The imaging protocol used to acquire images was Rest Tc-99m/stress Tc-99m 1 day Consent: The procedure was explained and understood by the patient. Informerd consent was witnessed Janet WIGGINS RN First, low dose rest was performed then high dose stress. RESTING DATA: The resting ekg shows: Atrial Fibrillation Rest SPECT myocardial perfusion imaging was performed in supine position 98 minutes following the int ravenous injection of 10.7 mCi of Tc-99 Sestamibi. Time of rest injection: 09:32: Date: 03/24/2024 Time of rest imagin:10: Date: 03/24/2024 PHARMACOLOGIC STRESS: Pharmacologic stress test was performed by injecting regadenoson 0.4 mg IV push followed by the intra venous injection of 32.6 mCi of Tc-99 Sestamibi. Time of stress injection: 11:40: Date: 03/24/2024 Time of stress imagin:57: Date: 03/24/2024 Heart Rate at time of stress injection: 77 bpm. Gated Stress SPECT was performed 77 minutes after stress injection. The images were gated to evaluate regional wall motion and calculate left ventricular ejection fracti on. STRESS DETAILS Reason for Termination: Infusion complete Stress Symptoms: HEAD PRESSURE Max HR Achieved: 88 bpm % of APMHR Achieved: 63 Max Blood Pressure: 144/72 mmHg Stress ECG: Atrial Fibrillation Conclusion No infarct No ischemia LV ejection fraction 52% Normal LV wall motion Normal LV size at rest and stress No evidence of increased lung uptake
== END | disposition home or self-care (01) ==
LOC: SHCH 09:18
PROVIDERS: ATTEND Internal Medicine Cardiovascular Disease
DX: I49.3 Ventricular premature depolarization (principal); I48.91 Unspecified atrial fibrillation; I42.9 Cardiomyopathy, unspecified; R53.83 Other fatigue; Z79.899 Other long term (current) drug therapy
CPT/HCPCS: 78452; 93017; J2785; A9500 ×2